=== PATIENT | female | born 1970 | race Two or more races ===

== ENCOUNTER 2020-10-17 07:06 | Inpatient (IN) | payer OTHER ==
[~2020-10-17] VITALS: Ht 157.5 cm; Wt 70.8 kg
[2020-10-23] MEDS ORDERED: DECADRON6 MG PO (09:14)
== END 2020-10-23 14:08 | disposition home or self-care (01) | DRG 177 ==
LOC: ER 07:06 → MEDJ 19:02
PROVIDERS: ADMIT Internal Medicine; ATTEND Internal Medicine
PROC: CB2YYZZ Tomographic (Tomo) Nuclear Medicine Imaging of Respiratory System using Other Radionuclide (ICD-10-PCS; 2020-10-17)
PROC: XW033E5 Introduction of Remdesivir Anti-infective into Peripheral Vein, Percutaneous Approach, New Technology Group 5 (ICD-10-PCS; principal; 2020-10-18)
PROC: 8E0ZXY6 Isolation (ICD-10-PCS; 2020-10-18)
DX: U07.1 COVID-19 (principal); J12.82 Pneumonia due to coronavirus disease 2019; Z20.822 Contact with and (suspected) exposure to COVID-19; R09.02 Hypoxemia